=== PATIENT | female | born 2000 | race African-American/Black ===

== ENCOUNTER 2023-01-04 01:49 | Day surgery (SDC) | payer OTHER ==
[2023-01-04 02:22] VITALS: BMI 33.6
[2023-01-04] MEDS ORDERED: hydrALAZINE 20 MG/ML VIAL SLOW IVP PRN (02:59)
[2023-01-04 03:40] LABS: Fetal Membranes Rupture No Membranes Rupture (No Rupture)
== END 2023-01-04 04:00 | disposition home or self-care (01) ==
LOC: CSHLD/OP 01:49
PROVIDERS: ATTEND Family Medicine
DX: O47.1 False labor at or after 37 completed weeks of gestation (principal); O23.43 Unspecified infection of urinary tract in pregnancy, third trimester; O98.313 Other infections with a predominantly sexual mode of transmission complicating pregnancy, third trimester; A59.01 Trichomonal vulvovaginitis; Z88.8 Allergy status to other drugs, medicaments and biological substances; Z91.041 Radiographic dye allergy status; Z79.899 Other long term (current) drug therapy; Z3A.38 38 weeks gestation of pregnancy
CPT/HCPCS: 84112; 87480; 87510; 87660; 99284